=== PATIENT | male | born 1960 | race Caucasian/White ===

== ENCOUNTER 2017-06-01 16:25 | Emergency (ER) | payer MEDICARE, OTHER ==
[~2017-06-01] VITALS: Ht 172.7 cm; Wt 85.0 kg
[~2017-06-01 16:25] MED LIST: SERT50 PO; ZYPR10TA PO
[2017-06-01 16:35] VITALS: BP 128/82; PULSE 91; RESP 20; TEMP 98.5; O2SAT 100
[2017-06-01 16:50] VITALS: BP 126/72; PULSE 92; RESP 16; TEMP 98.3; O2SAT 98
== END 2017-06-01 18:15 | disposition left against medical advice (07) ==
LOC: NEDAMB 16:25
DX: F10.129 Alcohol abuse with intoxication, unspecified (principal); Z53.21 Procedure and treatment not carried out due to patient leaving prior to being seen by health care provider
CPT/HCPCS: 99281

== ENCOUNTER 2017-08-02 16:07 | Emergency (ER) | payer MEDICARE, OTHER ==
[~2017-08-02] VITALS: Ht 177.8 cm; Wt 100.0 kg
[2017-08-02 16:10] VITALS: BP 128/87; PULSE 82; RESP 20; TEMP 98; O2SAT 98
--- NOTE | 2017-08-02 16:30 | PD ---
HPI Chief Complaint: Alcohol/Drug Intoxication Time Seen by Provider: 16:20 Travel History International Travel<30 days: No Contact w/Intl Traveler<30days: No Traveled to known affect area: No History of Present Illness HPI 56-year-old male brought to emergency department for evaluation of intoxication. Patient was drinking in public and fell asleep on the side of the road. He was unable to walk straight or standing up on his own so they brought him to the emergency department. Patient denies any trauma. Reports drinking a large amount of alcohol today. Denies any acute medical needs at this time. PFSH Past Medical History ADHD: Yes Anxiety: Yes Depression: Yes Diminished Hearing: No Psychiatric: Yes (HX OF ADHD) Respiratory: Yes (CHRONIC BRONCHITIS) Past Surgical History Neurologic Surgery: Yes Tonsillectomy: Yes Other Surgery: Yes (NASAL SURGERY FOR DEVIATED SEPTUM) Social History Alcohol Use: Yes (LUIS) Tobacco Use: Yes (1 PPD) Substance Use: No (OD X 24 TIMES PRIOR TO 1997. WAS ON COCAINE) Allergies-Medications (Allergen,Severity, Reaction): Coded Allergies: No Known Allergies (Verified Adverse Reaction, Unknown, 08/02/17) Reported Meds & Prescriptions Reported Meds & Active Scripts Active Reported Morphabond ER 12 HR (Morphine Sulfate) 30 Mg Tab 30 Mg PO Q12H Review of Systems ROS Limitations: Intoxication Except as stated in HPI: all other systems reviewed are Neg Physical Exam Exam Limitations: Intoxication Narrative GENERAL: Unkempt, clinically intoxicated male patient with strong smell of alcohol on his breath and slurred speech. SKIN: Focused skin assessment warm/dry. HEAD: Atraumatic. Normocephalic. EYES: Pupils equal and round. No scleral icterus. No injection or drainage. ENT: No nasal bleeding or discharge. Mucous membranes pink and moist. NECK: Trachea midline. No JVD. CARDIOVASCULAR: Regular rate and rhythm. No murmur appreciated. RESPIRATORY: No accessory muscle use. Clear to auscultation. Breath sounds equal bilaterally. GASTROINTESTINAL: Abdomen soft, non-tender, nondistended. Hepatic and splenic margins not palpable. MUSCULOSKELETAL: No obvious deformities. No clubbing. No cyanosis. No edema. NEUROLOGICAL: Arousable No obvious cranial nerve deficits. Motor grossly within normal limits. Slurred speech Data Data Last Documented VS Vital Signs Date Time Temp Pulse Resp B/P (MAP) Pulse Ox O2 Delivery O2 Flow Rate FiO2 08/02/17 20:15 08/02/17 17:51 80 16 97 Room Air 08/02/17 16:10 98.0 Orders Orders Ed Discharge Order (08/02/17 20:30) MDM Medical Decision Making Medical Screen Exam Complete: Yes Emergency Medical Condition: Yes Medical Record Reviewed: Yes Differential Diagnosis Intoxication versus polysubstance abuse versus electrolyte abnormality versus homelessness Narrative Course 56-year-old male presents to emergency department for evaluation of alcohol intoxication. Patient is clinically intoxicated. He does report drinking a large amount of alcohol today. Patient will be monitored until he is clinically sober at which time he'll be discharged. 2030 patient is awake and alert. He is ambulatory to and from the bathroom. His vital signs remained stable. He'll be discharged home with a bus pass at this time. Diagnosis Primary Impression: Alcohol intoxication Qualified Codes: F10.929 - Alcohol use, unspecified with intoxication, unspecified Referrals: [facility] (Out patient) Patient Instructions: Abuse of Alcohol (ED), General Instructions Additional Instructions: Consume alcohol in moderation Follow-up the primary care provider Return immediately with any acute worsening of symptoms Med/Other Pt SpecificInfo: No Change to Meds Disposition: 01 DISCHARGE HOME Condition: Stable Haydee Billingsley Aug 02, 2017 16:30
[2017-08-02] MEDS ORDERED: MORP-44 PO (17:50)
[2017-08-02 17:51] VITALS: BP 124/70; PULSE 80; RESP 16; O2SAT 97
== END 2017-08-02 20:37 | disposition home or self-care (01) ==
LOC: NEDAMB 16:07
DX: F10.129 Alcohol abuse with intoxication, unspecified (principal); F17.200 Nicotine dependence, unspecified, uncomplicated
CPT/HCPCS: 99283

== ENCOUNTER 2017-09-24 14:38 | Emergency (ER) | payer MEDICARE, OTHER ==
[~2017-09-24] VITALS: Ht 170.2 cm; Wt 87.0 kg
[~2017-09-24 14:38] MED LIST changes: +MORP-44 PO; -SERT50 PO; -ZYPR10TA PO
[2017-09-24 15:13] VITALS: BP 159/78; PULSE 105; RESP 18; TEMP 98.1; O2SAT 98
--- NOTE | 2017-09-24 16:06 | PD ---
HPI Chief Complaint: Alcohol/Drug Intoxication Time Seen by Provider: 16:02 Travel History International Travel<30 days: No Contact w/Intl Traveler<30days: No Traveled to known affect area: No History of Present Illness HPI 56-year-old male brought in under the [place] act. Police report the patient was in a sandwich shop and was accused of not paying for something he had, and the police were called. Patient was then placed onto the [place] act. He states he had 5 beers prior to this incident. He states he drinks this much every day. He has no medical complaints. Upon questioning the patient states he may have had 7 or 8 beers today. Patient denies history of DTs or seizure after not drinking. He has no known drug allergies. PFSH Past Medical History ADHD: Yes Anxiety: Yes Depression: Yes Diabetes: No Diminished Hearing: No Psychiatric: Yes (HX OF ADHD) Respiratory: Yes (CHRONIC BRONCHITIS) Past Surgical History Neurologic Surgery: Yes Tonsillectomy: Yes Other Surgery: Yes (NASAL SURGERY FOR DEVIATED SEPTUM) Social History Alcohol Use: Yes (LUIS) Tobacco Use: Yes (1 PPD) Substance Use: No (OD X 24 TIMES PRIOR TO 1997. WAS ON COCAINE) Allergies-Medications (Allergen,Severity, Reaction): Coded Allergies: No Known Allergies (Verified Allergy, Unknown, 09/24/17) Reported Meds & Prescriptions Reported Meds & Active Scripts Active Reported Morphabond ER 12 HR (Morphine Sulfate) 30 Mg Tab 30 Mg PO Q12H Review of Systems ROS Limitations: Intoxication Except as stated in HPI: all other systems reviewed are Neg General / Constitutional: No: Fever Eyes: No: Visual changes HENT: No: Headaches Cardiovascular: No: Chest Pain or Discomfort Respiratory: No: Shortness of Breath Gastrointestinal: No: Abdominal Pain Genitourinary: No: Dysuria Musculoskeletal: No: Pain Skin: No Rash Neurologic: No: Weakness Psychiatric: No: Depression Endocrine: No: Polydipsia Hematologic/Lymphatic: No: Easy Bruising Physical Exam Exam Limitations: Intoxication Narrative GENERAL: Patient appears intoxicated but cooperative. He is answering questions appropriately. SKIN: Warm and dry. Normal color. Normal turgor. Patient has old abrasion to the left anterior knee HEAD: Atraumatic. Normocephalic. EYES: Pupils equal and round. No scleral icterus. No injection or drainage. ENT: No nasal bleeding or discharge. Mucous membranes pink and moist. Pharynx is clear. Airways patent. NECK: Trachea midline. Supple. CARDIOVASCULAR: Regular rate and rhythm. RESPIRATORY: No accessory muscle use. Clear to auscultation. Breath sounds equal bilaterally. GASTROINTESTINAL: Abdomen soft, non-tender, nondistended. Hepatic and splenic margins not palpable. MUSCULOSKELETAL: Extremities without clubbing, cyanosis, or edema. No obvious deformities. NEUROLOGICAL: Awake and alert. No obvious cranial nerve deficits. Motor grossly within normal limits. Five out of 5 muscle strength in the arms and legs. Normal speech. PSYCHIATRIC: Appropriate mood and affect; insight and judgment normal. Data Data Last Documented VS Vital Signs Date Time Temp Pulse Resp B/P (MAP) Pulse Ox O2 Delivery O2 Flow Rate FiO2 09/24/17 16:13 Room Air 09/24/17 15:13 98.1 105 18 159/78 (105) 98 Orders Orders Complete Blood Count With Diff (09/24/17 16:06) Comprehensive Metabolic Panel (09/24/17 16:06) Urinalysis - C+S If Indicated (09/24/17 16:06) Iv Access Insert/Monitor (09/24/17 16:06) Alcohol (Ethanol) (09/24/17 16:06) Thiamine Inj (Thiamine Inj) (09/24/17 16:15) Sodium Chlor 0.9% 1000 Ml Inj (Ns 1000 M (09/24/17 16:15) Labs Laboratory Tests Test 09/24/17 15:15 09/24/17 16:10 Urine Color LIGHT-YELLOW Urine Turbidity CLEAR Urine pH 5.0 Urine Specific [place] 1.004 Urine Protein NEG mg/dL Urine Glucose (UA) NEG mg/dL Urine Ketones NEG mg/dL Urine Occult Blood NEG Urine Nitrite NEG Urine Bilirubin NEG Urine Urobilinogen LESS THAN 2.0 MG/DL Urine Leukocyte Esterase NEG Urine RBC LESS THAN 1 /hpf Urine WBC LESS THAN 1 /hpf Urine Squamous Epithelial Cells <1 /hpf Microscopic Urinalysis Comment CULT NOT INDICATED White Blood Count 12.6 TH/MM3 Red Blood Count 5.02 MIL/MM3 Hemoglobin 16.4 GM/DL Hematocrit 47.0 % Mean Corpuscular Volume 93.6 FL Mean Corpuscular Hemoglobin 32.6 PG Mean Corpuscular Hemoglobin Concent 34.8 % Red Cell Distribution Width 13.3 % Platelet Count 196 TH/MM3 Mean Platelet Volume 8.8 FL Neutrophils (%) (Auto) 70.5 % Lymphocytes (%) (Auto) 23.6 % Monocytes (%) (Auto) 3.6 % Eosinophils (%) (Auto) 2.0 % Basophils (%) (Auto) 0.3 % Neutrophils # (Auto) 8.8 TH/MM3 Lymphocytes # (Auto) 3.0 TH/MM3 Monocytes # (Auto) 0.5 TH/MM3 Eosinophils # (Auto) 0.3 TH/MM3 Basophils # (Auto) 0.0 TH/MM3 CBC Comment DIFF FINAL Differential Comment Blood Urea Nitrogen 10 MG/DL Creatinine 0.93 MG/DL Random Glucose 130 MG/DL Total Protein 8.2 GM/DL Albumin 3.7 GM/DL Calcium Level 8.5 MG/DL Alkaline Phosphatase 113 U/L Aspartate Amino Transf (AST/SGOT) 19 U/L Alanine Aminotransferase (ALT/SGPT) 23 U/L Total Bilirubin 0.4 MG/DL Sodium Level 138 MEQ/L Potassium Level 3.8 MEQ/L Chloride Level 103 MEQ/L Carbon Dioxide Level 20.3 MEQ/L Anion Gap 15 MEQ/L Estimat Glomerular Filtration Rate 84 ML/MIN Ethyl Alcohol Level 241 MG/DL [facility] Medical Decision Making Medical Screen Exam Complete: Yes Emergency Medical Condition: Yes Differential Diagnosis Alcohol intoxication. [place] act. Electrolyte imbalance. Narrative Course Patient is intoxicated but appears medically stable at time of exam. Labs ordered including CBC CMP and urinalysis. Serum alcohol levels ordered. IV is obtained and the patient is given 100 mg thiamine as well as 1000 mL normal saline bolus. CBC shows slight leukocytosis of 12.6. Chemistries unremarkable except for carbon dioxide of 20.3, GFR is 84, glucose is 130 Serum alcohol level is 241 Diagnosis Primary Impression: Alcohol intoxication Qualified Codes: F10.920 - Alcohol use, unspecified with intoxication, uncomplicated [facility] Patient Instructions: Abuse of Alcohol (ED), General Instructions Med/Other Pt SpecificInfo: No Meds Exist/No RX given Disposition: 01 DISCHARGE HOME Condition: Stable Preston Johnson Sep 24, 2017 16:06
[2017-09-24] MEDS ORDERED: SODIUM CHLOR 0.9% 1000 ML INJ 1,000 ML IV ONE (16:15)
[2017-09-24] MEDS ORDERED: THIAMINE INJ 100 MG in SODIUM CHLORIDE 0.9% INJ 100 ML IV ONE (16:15)
[2017-09-24 16:52] LABS: AUTOMATED NEUTROPHIL # 8.8 TH/MM3 (1.8-7.7); BASOPHIL % 0.3 % (0.0-2.0); EOSINOPHIL # 0.3 TH/MM3 (0-0.4); HEMOGLOBIN 16.4 GM/DL (13.0-17.0); LYMPH % 23.6 % (9.0-44.0); MEAN CELL VOLUME 93.6 FL (80.0-100.0); MEAN CORPUSCULAR HEMOGLOBIN 32.6 PG (27.0-34.0); MEAN CORPUSCULAR HGB CONC 34.8 % (32.0-36.0); MEAN PLATELET VOLUME 8.8 FL (7.0-11.0); MONO % 3.6 % (0.0-8.0); MONOCYTE # 0.5 TH/MM3 (0-0.9); NEUT % 70.5 % (16.0-70.0); PLATELET COUNT 196 TH/MM3 (150-450); RED BLOOD COUNT 5.02 MIL/MM3 (4.50-5.90); RED CELL DISTRIBUTION WIDTH 13.3 % (11.6-17.2); WHITE BLOOD COUNT 12.6 TH/MM3 (4.0-11.0)
[2017-09-24 17:12] LABS: ALBUMIN 3.7 GM/DL (3.4-5.0); ALT (GPT) 23 U/L (12-78); AST (GOT) 19 U/L (15-37); BICARBONATE 20.3 MEQ/L (21.0-32.0); BLOOD UREA NITROGEN 10 MG/DL (7-18); CALCIUM 8.5 MG/DL (8.5-10.1); CHLORIDE 103 MEQ/L (98-107); CREATININE 0.93 MG/DL (0.60-1.30); GLOMERULAR FILTRATION RATE 84 ML/MIN (>89); GLUCOSE,RANDOM 130 MG/DL (74-106); SODIUM (NA) 138 MEQ/L (136-145)
[2017-09-24 17:14] LABS: ALKALINE PHOSPHATASE 113 U/L (45-117); TOTAL BILIRUBIN ADULT 0.4 MG/DL (0.2-1.0); TOTAL PROTEIN 8.2 GM/DL (6.4-8.2)
[2017-09-24 18:37] LABS: BILIRUBIN, URINE NEG (NEG); BLOOD, URINE NEG (NEG); GLUCOSE,URINE NEG (NEG); KETONE, URINE NEG (NEG); NITRITE,URINE NEG (NEG); SQUAMOUS EPITHELIAL CELL URINE <1 /hpf (0-5); URINE COLOR LIGHT-YELLOW (YELLW/STRAW); URINE LEUKOCYTE ESTERASE NEG (NEG)
[2017-09-24 20:19] VITALS: BP 134/82
== END 2017-09-24 20:20 | disposition home or self-care (01) ==
LOC: NEDAMB 14:38 → NEPD 20:20
DX: F10.129 Alcohol abuse with intoxication, unspecified (principal); F17.200 Nicotine dependence, unspecified, uncomplicated; Y90.8 Blood alcohol level of 240 mg/100 ml or more
CPT/HCPCS: 80053; 80307; 81001; 85025; 96365; 96366; 99284; J3411; J7030